=== PATIENT | female | born 1945 | race Caucasian/White ===

== ENCOUNTER → 2021-02-17 | Outpatient (CLI) | payer MEDICARE, OTHER ==
--- NOTE | 2021-02-17 16:07 | KCIC ---
EXAM: Brain MRI without contrast. HISTORY: Ataxia. Right foot dragging. Parkinson's disease. TECHNIQUE: Multiplanar, multisequence magnetic resonance imaging of the brain was performed without c ontrast. COMPARISON: None. FINDINGS: There is no restricted diffusion to suggest acute or subacute infarction. There is a tiny f ocus of slight increased signal on diffusion weighted images within the left centrum semiovale, likel y due to T2 shine through artifact. There is moderate ventricular enlargement. This appears to be lilly ropriate for the degree of cerebral volume loss. There is superimposed ex vacuo dilatation of the pos terior left lateral ventricle likely due to chronic left occipital lobe infarct. There are multiple scattered focal areas of signal change within the cerebral white matter, likely du e to chronic small vessel disease in a patient of this age. The orbits are unremarkable. There is mil d ethmoid sinus because of thickening. There is a small amount of fluid the mastoid air cells. There are normal flow voids within the cerebral vessels. There is no suspicious calvarial lesion. There is no evidence of hemorrhage. IMPRESSION: 1. No acute intracranial finding. 2. Cerebral atrophy with compensatory enlargement of the ventricles. 3. Scattered areas of signal change within the cerebral white matter, likely due to chronic small ves markos disease in a patient of this age. 4. Ex vacuo dilatation of the occipital horn of the left lateral ventricle likely due to surrounding volume loss status post chronic infarction. Electronically signed by: Raquel Field MD (02/17/2021 4:04 PM) [id number]
== END ==
LOC: KCIC MRI 13:43
PROVIDERS: ATTEND Family Medicine
DX: G31.89 Other specified degenerative diseases of nervous system (principal); G93.89 Other specified disorders of brain; I69.993 Ataxia following unspecified cerebrovascular disease
CPT/HCPCS: 70551